=== PATIENT | male | born 1980 | race African-American/Black ===

== ENCOUNTER 2023-09-17 12:28 | Observation (INO) ==
[~2023-09-17 12:28] MED LIST: Buffered Lidocaine 1% SYRIN 1 ml INTRADERM ONE; Famotidine IV 10 MG/ML 2 ml VIAL (20 mg) IV ONE; Lactated Ringers 1000 ml BAG 1,000 ML IV SCH
[2023-09-17] MEDS ORDERED: Bupivacaine 0.5% SDV PF 30ML VIAL ONE (12:51)
[2023-09-17] MEDS ORDERED: ceFAZolin *3* GM in NS PREMIX 3 GM/100 ML BAG IV ONE (13:08)
[2023-09-17] MEDS ORDERED: Famotidine IV 10 MG/ML 2 ml VIAL (20 mg) ONE (13:08)
[2023-09-17] MEDS ORDERED: Glycopyrrolate IV 0.2 MG/ML 1 ML VIAL ONE (13:38)
[2023-09-17] MEDS ORDERED: Ondansetron 4 mg VIAL 2 MG/ML 2 ml VIAL ONE (13:38)
[2023-09-17] MEDS ORDERED: Lidocaine 2% PF 5 ML VIAL ONE (13:38)
[2023-09-17] MEDS ORDERED: Dexamethasone IV 4 MG/ML VIAL 1 ml VIAL ONE (13:38)
[2023-09-17] MEDS ORDERED: Propofol 10 MG/ML 20 ML BTL ONE (13:38)
[2023-09-17] MEDS ORDERED: Phenylephrine IV 10 MG/ML 1 ml VIAL ONE (13:55)
[2023-09-17] MEDS ORDERED: Phenylephrine 40 mcg/mL 10mL (400mcg) SYRINGE ONE (13:55)
[2023-09-17] MEDS ORDERED: Rocuronium 50 mg VIAL 10 mg/ml 5 ml VIAL (50 mg) ONE (13:57)
[2023-09-17] MEDS ORDERED: fentaNYL 250 mcg/5 ml 50 MCG/ML 5 ml VIAL (250 MCG) ONE (14:08)
[2023-09-17] MEDS ORDERED: HYDROmorphone 0.5 MG/0.5 ML SYRINGE ONE (14:47)
[2023-09-17] MEDS ORDERED: Labetalol IV 5 MG/ML 20 ml VIAL ONE (15:05)
[2023-09-17] MEDS ORDERED: HYDROmorphone 1 MG/1 ML SYRINGE IV PRN (16:42)
[2023-09-17] MEDS ORDERED: Naloxone 0.4 mg VIAL 0.4 mg/ml 1 ml VIAL IV PRN (16:42)
[2023-09-17] MEDS ORDERED: fentaNYL 100 mcg/2 ml 50 MCG/ML VIAL ONE ×2 (17:07→18:20)
[2023-09-17] MEDS ORDERED: hydrALAZINE 20 mg/ml 1 ML Vial IV ONE (17:13)
[2023-09-17] MEDS: fentaNYL 100 mcg/2 ml 50 MCG/ML VIAL IV PRN ×5 (17:13→18:23)
[2023-09-17] MEDS: hydrALAZINE 20 mg/ml 1 ML Vial IV IV SLOW PU PRN ×2 (17:14→17:35)
[2023-09-17] MEDS ORDERED: Magnesium Hydroxide LIQ 30 ML UDC PO PRN (20:09)
[2023-09-17] MEDS ORDERED: Ondansetron 4 mg VIAL 2 MG/ML 2 ml VIAL IV PRN (20:09)
[2023-09-17] MEDS ORDERED: HYDROmorphone 1 MG/1 ML SYRINGE IV SLOW PU ONE (23:13)
[2023-09-17] MEDS ORDERED: HYDROmorphone 0.5 MG/0.5 ML SYRINGE IV SLOW PU PRN (23:13)
[2023-09-18 02:22] LABS: Hematocrit 34.3 % (38-53); Hemoglobin 11.5 g/dL (13.2-16.3); Mean Corpuscular Hemoglobin 29.7 pg (27-33); Mean Corpuscular Hgb Conc 33.5 g/dL (31-36); Mean Corpuscular Volume 88.6 fL (80-97); Mean Platelet Volume 9.1 fL (7.5-11.2); Platelet Count 238 10^3/uL (150-450); Red Blood Count 3.87 10^6/uL (4.06-5.63); Red Cell Distribution Width 15.7 % (12-17); White Blood Count 12.6 10^3/uL (3.6-10.2)
[2023-09-18 02:40] LABS: Calcium 9.3 mg/dL (8.6-10.3); Creatinine, Serum 0.97 mg/dL (0.67-1.17); Potassium 4.3 mmol/L (3.5-5.0); Total Bilirubin 0.4 mg/dL (0.2-1.0); eGFR CKD-EPI 98.1 (>60)
[2023-09-18] MEDS: Enoxaparin 40 MG/0.4 ML SYR SUBCUT SCH (05:44)
[2023-09-18] MEDS: Polyethylene Glycol 3350 17 GM PACKET PO SCH (08:56)
[2023-09-18] MEDS: Aspirin EC 81 mg TAB.EC (enteric coated) PO SCH (08:59)
[2023-09-18] MEDS ORDERED: cloNIDine 0.1 MG PATCH 0.1 MG/24 HR 7 DAY PATCH TRANSDERM SCH (12:00)
[2023-09-18 12:37] LABS: INR 1.13 (0.83-1.13)
[2023-09-18 15:58] LABS: Ferritin 111.3 ng/mL (24-336)
[2023-09-19] MEDS ORDERED: hydrALAZINE 20 mg/ml 1 ML Vial IV IV SLOW PU ONE (02:27)
[2023-09-19] MEDS: Enoxaparin 40 MG/0.4 ML SYR SUBCUT SCH (05:22)
[2023-09-19 06:46] LABS: ABS Basophils 0.1 10^3/uL (0.0-0.1); ABS Eosinophils 0.1 10^3/uL (0.0-0.5); ABS Monocytes 0.8 10^3/uL (0.0-1.1); ABS Neutrophils 5.2 10^3/uL (1.5-7.6); Eosinophil % 0.8 %; Hemoglobin 11.1 g/dL (13.2-16.3); Lymphocyte % 24.9 %; Mean Corpuscular Hemoglobin 29.7 pg (27-33); Mean Corpuscular Hgb Conc 33.5 g/dL (31-36); Mean Corpuscular Volume 88.7 fL (80-97); Mean Platelet Volume 9.2 fL (7.5-11.2); Platelet Count 219 10^3/uL (150-450); Red Blood Count 3.73 10^6/uL (4.06-5.63); Red Cell Distribution Width 15.9 % (12-17); White Blood Count 8.2 10^3/uL (3.6-10.2)
[2023-09-19 07:00] LABS: Calcium 9.5 mg/dL (8.6-10.3); Creatinine, Serum 1.03 mg/dL (0.67-1.17); Magnesium 1.7 mg/dL (1.9-2.7); Potassium 4.3 mmol/L (3.5-5.0); eGFR CKD-EPI 91.3 (>60)
[2023-09-19] MEDS: Aspirin EC 81 mg TAB.EC (enteric coated) PO SCH (10:15)
[2023-09-19] MEDS: Polyethylene Glycol 3350 17 GM PACKET PO SCH (10:16)
[2023-09-19] MEDS ORDERED: Magnesium Sulf 4 GM/100 ML IV 4,000 MG/100 ML BAG IVPB ONE (12:30)
[2023-09-19 13:49] VITALS: BP 136/68
== END 2023-09-19 17:35 ==
LOC: SSU 12:28 → OR 12:28 → SUATTDRO 21:26
PROVIDERS: ADMIT Internal Medicine; ATTEND Internal Medicine